=== PATIENT | female | born 2005 | race Caucasian/White ===

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

== ENCOUNTER 2024-04-24 08:12 | Emergency (ER) | payer OTHER, SELFPAY ==
[2024-04-24 08:25] VITALS: BP 110/66; PULSE 65; RESP 16; TEMP 36.6; O2SAT 100; BMI 20.9
--- NOTE | 2024-04-24 08:41 | ED.ABDPAIN ---
HPI - Abdominal Pain General Chief Complaint: Abdominal Pain Stated Complaint: acute pelvic and back pain Time Seen by Provider: 04/24/24 08:39 Source: patient Mode of arrival: Family Vehicle History of Present Illness HPI narrative: Patient is a 18-year-old female who presents today with lower abdominal pelvic pain. She reports it is right than her left but does have some left flank pain. She has had this pain previously. She curls up in a ball and waits to go by. She has been seen by GI she thought it was a GI issue however now she thinks maybe it is pelvic issue. She has had who is going to throw up today which prompted her to come to the ED. No painful frequent urination no actual vomiting. Pain has improved. But started an hour and a half prior to arrival. Mom is trying to get her into [employer] but not yet successful. History of appendectomy in 4th grade. Related Data Home Medications Medication Instructions Recorded Confirmed MULTIVITAMIN (Multivitamin 1 cap PO EVERY DAY ##0 10/01/10 -) Allergies Allergy/AdvReac Type Severity Reaction Status Date / Time fructose AdvReac Verified 04/24/24 08:30 lactose AdvReac Verified 04/24/24 08:30 No Known Allergies Allergy Uncoded 02/21/18 12:01 Patient History Social History Smoking Status: Never smoker Smoking Status: Never smoker Substance Use Type: does not use Exam Initial Vital Signs Initial Vital Signs: Vital Signs Temperature 98 F 04/24/24 08:25 Pulse Rate 65 04/24/24 08:25 Respiratory Rate 16 04/24/24 08:25 Blood Pressure 110/66 04/24/24 08:25 Pulse Oximetry 100 04/24/24 08:25 Oxygen Delivery Method Room Air 04/24/24 08:25 GENERAL: Well-appearing, well-nourished and in no acute distress. HEENT: Head atraumatic,EOMI, pupils reactive, face symmetric, moist mucous membranes CARDIOVASCULAR: Regular rate and rhythm without murmurs, rubs or gallops. RESPIRATORY: Breath sounds equal bilaterally, no wheezes rales or rhonchi. ABDOMEN: Soft, mild lower abdominal pain right greater than left : Minimal left CVA tenderness EXTREMITIES: Normal range of motion, no clubbing or edema. Neurovascularly intact NEUROLOGICAL: Alert and oriented x4.Normal gait and speech. SKIN: Warm, dry, no laceration, no petechiae, no rashes or lesions. Course Orders Ordered: ED Orders 04/24/24 08:47 US pelvic complete Stat 04/24/24 09:09 Urine Culture Stat Urine Microscopic Stat 04/24/24 09:10 Complete Blood Count AUTO DIFF Stat Comprehensive Metabolic Panel Stat Lipase Stat 04/24/24 10:00 CT abdomen pelvis w con Stat Discontinued Medications Ketorolac Tromethamine (Ketorolac 30 Mg/Ml Vial) 30 mg IV NOW ONE Stop: 04/24/24 08:48 Last Admin: 04/24/24 09:14 Dose: 30 mg Documented By: [facility] Vital Signs Vital signs: Vital Signs - 8 hr 04/24/24 08:25 04/24/24 10:59 Temperature 98 F Pulse Rate 65 72 Respiratory Rate 16 16 Blood Pressure 110/66 110/76 Pulse Oximetry 100 99 Oxygen Delivery Method Room Air Room Air MDM - Abdominal Pain Lab Data 04/24/24 09:10 04/24/24 09:10 Labs: Lab Results 04/24/24 04/24/24 Range/Units 09:09 09:10 WBC 4.3 L (4.5-11.0) X10^3/uL RBC 4.53 (4.0-5.2) X10^6/uL Hgb 13.5 (12.0-16.0) g/dL Hct 38.8 (36-46) % MCV 85.6 (80-100) fL MCH 29.9 (26-34) PG MCHC 34.9 (30-36) % RDW 13.5 (11.6-14.8) % Plt Count 243 (150-400) X10^3/uL Neut % (Auto) 51.1 (50-75) % Lymph % (Auto) 33.5 (25-40) % [place] % (Auto) 10.9 (3-14) % Eos % (Auto) 3.5 (2-4) % Baso % (Auto) 1.0 (0-2) % Neut # (Auto) 2200 (9468-3448) /uL Lymph # (Auto) 1500 (4892-1276) /uL [place] # (Auto) 500 (0-900) /uL Eos # (Auto) 100 (0-450) /uL Baso # (Auto) 0 (0-100) /uL Sodium 138 (137-145) mmol/L Potassium 3.8 (3.4-5.1) mmol/L Chloride 107 (98-107) mmol/L Carbon Dioxide 25 (22-32) mmol/L BUN 10 (7-17) mg/dL Creatinine 0.66 (0.52-1.04) mg/dL Estimated GFR > 60 (>60) mL/min BUN/Creatinine Ratio 15.2 (6-22) Glucose 98 (70-100) mg/dL Calcium 8.8 (8.4-10.2) mg/dL Total Bilirubin 1.2 (0.2-1.3) mg/dL AST 22 (14-36) IU/L ALT 15 (<35) IU/L Alkaline Phosphatase 53 (38-126) U/L Total Protein 7.5 (6.3-8.2) g/dL Albumin 4.5 (3.5-5.0) g/dL Globulin 3.0 (1.7-4.1) g/dL Albumin/Globulin Ratio 1.5 (1.0-2.8) Lipase 33 (23-300) U/L Urine RBC None seen (0-5/HPF) Urine WBC 5-10/hpf H (0-5/HPF) Ur Squamous Epith Cells 1-5 /hpf (0-5/HPF) Urine Bacteria None seen (None) Urine Mucus 2+ H (Negative) Ur Culture Indicated? Specimen cultured Vol Urine Centrifuged 10ml (spun) Point of care testing: Point of Care Testing Test Results Negative Urine Dip Bedside Urine Glucose Negative Bedside Urine Bilirubin - Negative Bedside Urine Ketone +/- 5 Urine Specific [place] 1.025 Bedside Urine Occult Blood - Negative Bedside Urine pH 6.0 Bedside Urine Protein +/- 15 Bedside Urine Urobilinogen - Negative Bedside Urine Nitrite - Negative Bedside Urine Leukocytes +/- [address] scan - abdomen/pelvis: Radiologist's Impression: PROCEDURE: CT ABDOMEN PELVIS W CON INDICATIONS: lower ab pain TECHNIQUE: After the administration of intravenous contrast, axial sections acquired from the lung bases to the pubic symphysis. Coronal and sagittal reformats were performed. For radiation dose reduction, the following was used: automated exposure control, adjustment of mA and/or kV according to patient size. COMPARISON: [facility], CT, ABDOMEN/PELVIS WITH CONTRAST, 02/07/2015, 10:30. FINDINGS: Image quality: Diagnostic. Lower Chest: No significant findings. ABDOMEN: Liver: No solid mass. Gallbladder: No radiopaque gallstones or wall thickening. Biliary ducts: No biliary dilation. Pancreas: No ductal dilation. Spleen: Size is within normal limits. Adrenal Glands: No adrenal nodules. Kidneys and Ureters: No hydronephrosis. No solid mass. No complex renal cystic lesion which requires follow up. Stomach and Bowel: Normal colonic caliber, without significant wall thickening. Peritoneum: No abnormal intraperitoneal fluid. No free air. Ventral Wall: No significant ventral hernia. Abdominal Nodes: No retroperitoneal or mesenteric adenopathy by size criteria. Vessels: Aorta and inferior vena cava are normal in size. 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 PELVIS: Pelvic Organs: Unremarkable. Bladder: No bladder wall thickening, accounting for underdistention. Pelvic Nodes: No enlarged lymph nodes. Miscellaneous: No inguinal hernias are seen. Bones: No aggressive osseous abnormality. Bilateral L5 pars defects with trace anterolisthesis of L5 on S1. IMPRESSION: 1. No acute abdominal process noted. 2. 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 In a subset of patients, this finding can result in the clinical syndrome of chronic pelvic venous congestion. Suggest clinical correlation. 3. Bilateral L5 pars defects with trace anterolisthesis of L5 on S1. Dictated by: Akbar Randall M.D. on 04/24/2024 at 10:18 US - BUNDLE SORTER: Radiologist's Impression: PROCEDURE: US PELVIC COMPLETE INDICATIONS: right pain TECHNIQUE: Real-time scanning was performed of the pelvic organs, with image documentation. Additional endovaginal scanning was necessary due to incomplete visualization of the adnexal and endometrial structures by transabdominal scanning. COMPARISON: None. FINDINGS: Uterus: Uterus is anteverted and normal in size at 7.5 x 3.6 x 5.2 cm. The myometrium is heterogeneous with increased echogenicity of the posterior myometrium. The endometrium measures 3.3 mm combined thickness. No fibroids. Ovaries: The right ovary measures 3.1 x 1.3 x 1.3 cm, with a calculated ovarian volume of 2.6 cc. The left ovary measures 3.4 x 2.0 x 1.4 cm, with a calculated ovarian volume of 4.9 cc. The ovaries have a normal sonographic appearance. Less than 12 follicles can be seen in each ovary. No adnexal masses are seen. There is bilateral duplex intra-ovarian flow. Other: No pathologic free abdominal or pelvic fluid. IMPRESSION: Unremarkable pelvic ultrasound. We strive to produce accurate, complete, and clear reports of imaging services. To assist us in improving patient care, this report was composed using standard report templates and voice recognition software. Therefore, it may contain abnormal punctuation, insertions and/or omissions. Occasional wrong-word or sound-alike substitutions may occur. Though we review the report and make efforts to correct it, we do recommend that the report be read carefully in proper context to recognize any text inaccuracies. Dictated by: Akbar Randall M.D. on 04/24/2024 at 10:15 Approved by: Akbar Randall M.D. on 04/24/2024 at 10:18 MDM Narrative Medical decision making narrative: Patient is a healthy 18-year-old female who presents today with ongoing lower abdominal pain. She is followed by GI however pain was worse today than it has been previously. She has not had any significant imaging or workup for this previously. Pain has now resolved she has no longer nauseous. Blood work has been reviewed and overall unremarkable no leukocytosis electrolyte or liver enzyme abnormalities Urinalysis is negative for and UTI. Imaging has been reviewed ultrasound does not show any evidence of ovarian cyst or torsion CT does show enlarged left ovarian vein consistent with pelvic congestion syndrome Pelvic congestion syndrome could be causing all of her symptoms. They are trying to get her into [facility] [employer] which I agree with this. At this time no other cause of pain is identified. Supportive care only. Discharge Plan Departure Patient Disposition: Home Clinical Impression: Pelvic congestion syndrome Activity Restrictions/Additional Instructions: *You have been diagnosed with possible pelvic congestion syndrome *What to do: At this time I do recommend follow-up with [facility] [employer] in regards to this pelvic congestion syndrome. It may or may not be the cause of your symptoms. Unfortunately supportive care only. *Continue to take medications as directed Tylenol Motrin as needed for pain *Follow up with your primary care provider in 2-3 days or call [phone] *Return to ER if you should have increasing pain persistent vomiting or any new, worsening or concerning symptoms Prescriptions: No Action MULTIVITAMIN (Multivitamin -) 1 cap PO EVERY DAY Qty: 0 Referrals: Hernando Limon MD [Primary Care Provider] - Stand Alone Forms: Patient Portal/API
--- NOTE | 2024-04-24 08:47 | DI.US.S_ITS ---
PROCEDURE: US PELVIC COMPLETE INDICATIONS: right pain TECHNIQUE: Real-time scanning was performed of the pelvic organs, with image documentation. Additional endovaginal scanning was necessary due to incomplete visualization of the adnexal and endometrial structures by transabdominal scanning. COMPARISON: None. FINDINGS: Uterus: Uterus is anteverted and normal in size at 7.5 x 3.6 x 5.2 cm. The myometrium is heterogeneous with increased echogenicity of the posterior myometrium. The endometrium measures 3.3 mm combined thickness. No fibroids. Ovaries: The right ovary measures 3.1 x 1.3 x 1.3 cm, with a calculated ovarian volume of 2.6 cc. The left ovary measures 3.4 x 2.0 x 1.4 cm, with a calculated ovarian volume of 4.9 cc. The ovaries have a normal sonographic appearance. Less than 12 follicles can be seen in each ovary. No adnexal masses are seen. There is bilateral duplex intra-ovarian flow. Other: No pathologic free abdominal or pelvic fluid. IMPRESSION: Unremarkable pelvic ultrasound. We strive to produce accurate, complete, and clear reports of imaging services. To assist us in improving patient care, this report was composed using standard report templates and voice recognition software. Therefore, it may contain abnormal punctuation, insertions and/or omissions. Occasional wrong-word or sound-alike substitutions may occur. Though we review the report and make efforts to correct it, we do recommend that the report be read carefully in proper context to recognize any text inaccuracies. Dictated by: Akbar Randall M.D. on 04/24/2024 at 10:15 Approved by: Akbar Randall M.D. on 04/24/2024 at 10:18
[2024-04-24 09:14] LABS: Urine Volume 10mL (spun)
[2024-04-24] MEDS: KETOROLAC 30 MG/ML VIAL IV (09:14)
[2024-04-24 09:18] LABS: Add Manual Diff / Slide Review NO; Basophils Absolute Auto 0 /uL (0-100); Eosinophils Absolute Auto 100 /uL (0-450); Eosinophils Percent Auto 3.5 % (2-4); Hematocrit 38.8 % (36-46); Hemoglobin 13.5 g/dL (12.0-16.0); Lymphocytes Absolute Auto 1500 /uL (1100-4500); Lymphocytes Percent Auto 33.5 % (25-40); Mean Corpuscular HGB Conc 34.9 % (30-36); Mean Corpuscular Hemoglobin 29.9 PG (26-34); Mean Corpuscular Volume 85.6 fL (80-100); Monocytes Absolute Auto 500 /uL (0-900); Monocytes Percent Auto 10.9 % (3-14); Neutrophils Absolute Auto 2200 /uL (1500-7000); Neutrophils Percent Auto 51.1 % (50-75); Platelet Count 243 X10^3/uL (150-400); Red Blood Cell Count 4.53 X10^6/uL (4.0-5.2); Red Cell Distribution Width 13.5 % (11.6-14.8); White Blood Cell Count 4.3 X10^3/uL (4.5-11.0)
[2024-04-24 09:19] LABS: Bacteria Urine None Seen; Culture Indicated Urine Specimen Cultured; Mucus Urine 2+ (Negative); RBC Urine None Seen (0-5/HPF); Squamous Epithelial Cell Urine 1-5 /HPF (0-5/HPF); WBC Urine 5-10/HPF (0-5/HPF)
[2024-04-24 09:39] LABS: Alanine Aminotransferase 15 IU/L (<35); Albumin 4.5 g/dL (3.5-5.0); Albumin Globulin Ratio 1.5 (1.0-2.8); Alkaline Phosphatase 53 U/L (38-126); Aspartate Aminotransferase 22 IU/L (14-36); BUN Creatinine Ratio 15.2 (6-22); Bilirubin Total 1.2 mg/dL (0.2-1.3); Blood Urea Nitrogen 10 mg/dL (7-17); Calcium 8.8 mg/dL (8.4-10.2); Carbon Dioxide 25 mmol/L (22-32); Chloride 107 mmol/L (98-107); Estimated Glomerular Filt Rate > 60 mL/min (>60); Glucose 98 mg/dL (70-100); HEMOLYSIS < 15 (0-50); Lipase 33 U/L (23-300); Potassium 3.8 mmol/L (3.4-5.1); Sodium 138 mmol/L (137-145); Total Protein 7.5 g/dL (6.3-8.2)
--- NOTE | 2024-04-24 10:00 | DI.CT.S_ITS ---
PROCEDURE: CT ABDOMEN PELVIS W CON INDICATIONS: lower ab pain TECHNIQUE: After the administration of intravenous contrast, axial sections acquired from the lung bases to the pubic symphysis. Coronal and sagittal reformats were performed. For radiation dose reduction, the following was used: automated exposure control, adjustment of mA and/or kV according to patient size. COMPARISON: [facility], CT, ABDOMEN/PELVIS WITH CONTRAST, 02/07/2015, 10:30. FINDINGS: Image quality: Diagnostic. Lower Chest: No significant findings. ABDOMEN: Liver: No solid mass. Gallbladder: No radiopaque gallstones or wall thickening. Biliary ducts: No biliary dilation. Pancreas: No ductal dilation. Spleen: Size is within normal limits. Adrenal Glands: No adrenal nodules. Kidneys and Ureters: No hydronephrosis. No solid mass. No complex renal cystic lesion which requires follow up. Stomach and Bowel: Normal colonic caliber, without significant wall thickening. Peritoneum: No abnormal intraperitoneal fluid. No free air. Ventral Wall: No significant ventral hernia. Abdominal Nodes: No retroperitoneal or mesenteric adenopathy by size criteria. Vessels: Aorta and inferior vena cava are normal in size. 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 PELVIS: Pelvic Organs: Unremarkable. Bladder: No bladder wall thickening, accounting for underdistention. Pelvic Nodes: No enlarged lymph nodes. Miscellaneous: No inguinal hernias are seen. Bones: No aggressive osseous abnormality. Bilateral L5 pars defects with trace anterolisthesis of L5 on S1. IMPRESSION: 1. No acute abdominal process noted. 2. 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 In a subset of patients, this finding can result in the clinical syndrome of chronic pelvic venous congestion. Suggest clinical correlation. 3. Bilateral L5 pars defects with trace anterolisthesis of L5 on S1. Dictated by: Akbar Randall M.D. on 04/24/2024 at 10:18 Approved by: Akbar Randall M.D. on 04/24/2024 at 10:28
[2024-04-24 10:59] VITALS: BP 110/76; PULSE 72; RESP 16; O2SAT 99
== END 2024-04-24 11:00 | disposition home or self-care (01) ==
PROVIDERS: Emergency Provider Emergency Medicine; Family Provider Family Medicine; PCP Family Medicine
DX: N94.89 Other specified conditions associated with female genital organs and menstrual cycle (principal); R10.2 Pelvic and perineal pain
CPT/HCPCS: 36415; 74177; 76856; 80053; 81003; 81015; 81025; 83690; 85025; 87086; 96374; 99284; J1885; Q9967

== ENCOUNTER → 2025-04-02 16:11 | Outpatient (CLI) | payer OTHER, SELFPAY ==
[2025-04-04 13:10] LABS: Candida species Negative (Negative); Gardnerella vaginalis Negative (Negative); Trichomoas vaginalis Negative (Negative)
== END ==
PROVIDERS: Family Provider Family Medicine; PCP Registered Nurse; Visit Provider Obstetrics & Gynecology
DX: N89.8 Other specified noninflammatory disorders of vagina (principal)
CPT/HCPCS: 87480; 87510; 87660

== ENCOUNTER 2025-05-08 09:06 | Day surgery (SDC) | payer OTHER, SELFPAY ==
[2025-05-05 13:18] VITALS: BMI 21.7
[2025-05-08] VITALS (11 sets, daily range): BP systolic 84–124; BP diastolic 37–83; PULSE 49–90; RESP 10–16; TEMP 36.2–36.3; O2SAT 98–100; BMI 21.7
[2025-05-08] MEDS: FAMOTIDINE 20 MG/2 ML VIAL IV (09:37)
[2025-05-08] MEDS: SCOPOLAMINE 1 PATCH TOP (09:38)
[2025-05-08] MEDS: LACTATED RINGERS 1,000 ML 21 ML IV (09:38)
--- NOTE | 2025-05-08 10:12 | P.HPOB_ITS ---
History of Present Illness History of Present Illness Reason for admission: pelvic pain (And severe dysmenorrhea) Narrative: Karmen Ng is a 19 year old female 0 with severe dysmenorrhea and pelvic pain, suspect endometriosis. She is here for a diagnostic laparoscopy, possible lysis of adhesions, possible excision of endometriosis. [facility] Medical History (Updated 05/05/25 @ 13:25 by Jocy Antonio RN) Depression Surgical History (Updated 05/05/25 @ 13:22 by Jocy Antonio RN) Hx of appendectomy Social History household members: family Smoking Status: Never smoker alcohol intake: never Meds Home Medications and Allergies Home Medications ?Medication ?Instructions ?Recorded ?Confirmed ?Type MULTIVITAMIN (Multivitamin 1 cap PO EVERY DAY ##0 09/1305/08/25 History -) escitalopram oxalate 10 mg tablet 10 mg PO DAILY 04/0205/08/25 History (Lexapro) norethindrone acetate 1.5 1 tab PO DAILY 05/08/2504/14 History mg-ethinyl estradiol 30 mcg tablet (Aurovela) Allergies Allergy/AdvReac Type Severity Reaction Status Date / Time No Known Allergies Allergy Verified 05/08/25 09:42 fructose AdvReac Verified 04/02/25 15:09 lactose AdvReac Verified 04/02/25 15:09 Exam Vital Signs (past 8 hours): - 05/08/25 09:20 Temperature 97.2 F L Pulse Rate 90 Respiratory Rate 16 Blood Pressure 124/83 Pulse Oximetry 98 Oxygen Delivery Method Room Air Oxygen Delivery Method Room Air Narrative Exam Narrative: HEENT: No thyromegaly, no anterior cervical or supraclavicular lymphadenopathy. Lungs:Clear to auscultation bilaterally, no wheezes. Cardiovascular: Regular rate and rhythm, no murmurs, rubs, or gallops. Abdomen: Well-healed scars. No hepatosplenomegaly. No masses palpable. External genitalia: Normal Vagina: Normal Cervix: Normal Bimanual exam: 7 Week size uterus. Mobile. Assessment & Plan Assessment & Plan narrative: Assessment: 19-year-old 0 with severe dysmenorrhea and pelvic pain Suspect endometriosis Plan: Diagnostic laparoscopy with possible lysis of adhesions or possible treatment of endometriosis The risks, benefits, and alternatives to the procedure were explained to the patient. The risks including bleeding, infection, injury to the bowel, bladder, or ureters. She understands these risks and agrees to proceed. A full par Q was held and consent form was signed. Time-Based Coding :: [TOTAL MINUTES] spent with patient and on the chart (including review of chart, obtaining history, exam, reviewing outside data, placing orders, documenting exam and treatment plan, and counseling patient) on [DATE].
--- NOTE | 2025-05-08 10:15 | PM.PREOP ---
Pre-operative Note Interval Note History & Physical reviewed/Exam performed by Physician: Yes Changes to H&P: No H&P completed within 30 days and has changed as indicated here:: 05/08/25
--- NOTE | 2025-05-08 10:36 | SUR.OPER ---
Lithotomy on padded OR bed, head on pillow, arms secured on padded arm boards at <90 degrees abduction. Legs secured in padded yellow fins stirrups.
[2025-05-08] MEDS: BUPIVACAINE 0.5% W/ EPI (PF) 30 ML VIAL INJ (10:57)
--- NOTE | 2025-05-08 11:25 | PM.GYNOP.1 ---
Operative Date/Time/Diagnoses Date of procedure: 05/08/25 Time of procedure: 11:25 Pre-op diagnosis: Pelvic pain Severe dysmenorrhea Post-op diagnosis: same Procedure & Clinicians Procedure: Procedures Operation Date: 05/08/25 10:30 Actual Procedure Side Surgeon p Diagnostic laparoscopy with lysis of adhesions Not Applicable Malika Ye MD Indications: 19-year-old 0 with severe dysmenorrhea and pelvic pain Surgeon: Malika Ye Anesthesia Type: General and Local Operative Notes Findings: 6 week size anteverted uterus Normal ovaries and tubes Normal liver and gallbladder No evidence of endometriosis in the anterior or posterior cul-de-sacs, or bilateral ovarian fossa Appendix previously removed Significant pelvic congestion Closure Type: primary Specimen(s): none Applied: none Estimated blood loss (mL): 3 Blood products transfused: none Procedure in detail: After informed consent was obtained, the patient was taken to the operating room where she was placed in the dorsal supine position. After adequate general endotracheal anesthesia was achieved, she was placed in the dorsal lithotomy position, and prepped and draped in the usual sterile fashion. A time-out was performed. A bivalve speculum was placed into the vagina and the anterior lip of the cervix was grasped with a single-tooth tenaculum. An attempt was made to dilate the cervical os but could not dilate past 1-1/2 cm into the canal. A decision was made to just put a moistened sponge stick in the vagina. The single-tooth tenaculum was removed from the anterior lip of the cervix. The bivalve speculum was removed from the vagina. Attention was turned to the abdomen where 6 cc of 0.5% Marcaine with epinephrine were injected in the umbilical fold. A 5 mm incision was made. The Veress needle was placed into the peritoneal cavity, and its placement confirmed by aspiration and drop test. The abdominal cavity is insufflated with 3.2 L of CO2. The Veress needle was removed, and a 5 mm trocar was placed under direct visualization. The balloon was inflated. A second incision was made 4 cm left lateral to the umbilicus after 6 cc of 0.5% Marcaine with epinephrine were injected. A second 5 mm incision was made. A 5 mm trocar was placed under direct visualization. The patient was placed in Trendelenburg. The probe was placed through the lateral incision and was used to move the bowel out of the pelvis. There was significant pelvic congestion bilaterally. The uterus was normal. The right tube and ovary were normal. The left tube was hidden behind the bowel, but the ovary was visualized and was normal. There was no evidence of endometriosis in the anterior or posterior cul-de-sacs, or in either ovarian fossa. There were some omental adhesions underneath the previous appendectomy scar. These were taken down with the endo Madeline, with cautery and cut. Hemostasis was achieved. The appendix had been previously removed. The gallbladder and liver were normal. The instruments were removed from the abdomen. The CO2 was allowed to escape. The incisions were closed with 4-0 Monocryl in a subcuticular fashion. Steri-Strips and dressings were placed. The moistened sponge stick was removed from the vagina. Sponge, lap, and instrument counts were correct x2. The patient tolerated the procedure well, and was taken to PACU in stable condition. Complications: none Post-operative Condition: stable Disposition: PACU
[2025-05-08] MEDS: ePHEDrine 50 MG/ML VIAL IV (11:41)
== END 2025-05-08 12:50 | disposition home or self-care (01) ==
PROVIDERS: Family Provider Family Medicine; PCP Registered Nurse; Referring Provider Obstetrics & Gynecology; Visit Provider Obstetrics & Gynecology
PROC: 0U5B4ZZ Destruction of Endometrium, Percutaneous Endoscopic Approach (ICD-10-PCS; CPT 58662; principal; 2025-05-08 10:30)
DX: N94.6 Dysmenorrhea, unspecified (principal); R10.2 Pelvic and perineal pain; N73.6 Female pelvic peritoneal adhesions (postinfective)
CPT/HCPCS: 58660; 81025; J1100; J1885; J2250; J2405; J2704; J3010; J3475; J3490

== ENCOUNTER → 2025-06-19 13:37 | Outpatient (CLI) | payer OTHER, SELFPAY ==
--- NOTE | 2025-06-19 13:38 | DI.NM.S_ITS ---
PROCEDURE: NM MECKEL'S RADIOPHARMACEUTICAL: 9.9 mCi Tc-99m pertechnetate IV. INDICATIONS: abdominal pain TECHNIQUE: After intravenous injection of radiopharmaceutical, sequential anterior abdominal images were obtained through 60 minutes. COMPARISON: [facility], CT, CT ABDOMEN PELVIS W CON, 04/24/2024, 9:48. FINDINGS: There is physiological uptake in the stomach. There are no abnormal foci of Tc-99m pertechnetate uptake to suggest ectopic gastric mucosa in the abdomen or pelvis. IMPRESSION: No ectopic focus of radiotracer uptake Dictated by: Tera Alatorre M.D. on 06/20/2025 at 9:14 Approved by: Tera Alatorre M.D. on 06/20/2025 at 9:19
== END ==
PROVIDERS: Family Provider Family Medicine; PCP Registered Nurse; Referring Provider Obstetrics & Gynecology; Visit Provider Obstetrics & Gynecology
DX: R10.9 Unspecified abdominal pain (principal)
CPT/HCPCS: 78290; A9512